=== PATIENT | female | born 1945 | race Caucasian/White ===

== ENCOUNTER → 2018-02-16 | Outpatient (CLI) | payer MEDICARE ==
[~2018-02-16] MED LIST: ASPI-1441 PO; ASPI-1471 PO; ASPI81TA94 PO; ATE50 PO; ATEN-1 PO; ATEN-65 PO; BUS5 PO; CALC-1033 PO; CALC-1046; CLI150 PO; CLIN300C99 PO; EZET1TAB81 PO; LEV25 PO; LEVO25TA61 PO; LOR5/325 PO; LORA-630 PO; LOSA50TA67 PO; MAGN27TA6 PO; MAGN400T10; METO25TA23 PO; MULT-1 PO; MULT-27 PO; NIT4 SL; OMEP-218 PO; ONDA-2 PO; SENN-287 PO; SIMV-44 PO; SIMV-54 PO; VERA180C7 PO; VERA240C10 PO
== END ==
LOC: LAB 09:14
PROVIDERS: ATTEND Family Medicine
DX: E03.9 Hypothyroidism, unspecified (principal)
CPT/HCPCS: 36415; 84443

== ENCOUNTER → 2018-04-03 | Outpatient (CLI) | payer MEDICARE ==
[~2018-04-03] MED LIST changes: +PRAV40TA78 PO
--- NOTE | 2018-04-03 16:29 | RADIOLOGY IMAGING REPORT ---
FACILITY: [facility] PATIENT NAME: Leslee Cornell : 1945 MR: [id number] V: [id number] EXAM DATE: ORDERING PHYSICIAN: FIORDALIZA BOUCHER TECHNOLOGIST: Location: [facility] Patient: Leslee Cornell : 1945 Visit/Account:[id number] Date of Sevice: 04/03/2018 Venous Doppler ultrasound left lower extremity Indication: Left calf tenderness and ankle swelling. Comparison: None Available Findings: Duplex Doppler and color flow imaging was performed. The common femoral, femoral, and popl iteal veins are all patent and compressible with normal Doppler wave forms. There are normal respons es to augmentation. The posterior tibial and peroneal veins are patent in the calf. The proximal greater saphenous vein is also normal. IMPRESSION: 1. No evidence of deep venous thrombosis of the left lower extremity. Report Dictated By: Clifton Cruz DO at 04/03/2018 4:24 PM Report E-Signed By: Clifton Cruz DO at 04/03/2018 4:25 PM WSN:[id number]
== END ==
LOC: RAD 15:16
PROVIDERS: ATTEND Nurse Practitioner Primary Care
DX: M79.605 Pain in left leg (principal); R60.0 Localized edema

== ENCOUNTER → 2018-04-25 | Outpatient (CLI) | payer MEDICARE | LOC: US 01:37 | PROVIDERS: ATTEND Internal Medicine Cardiovascular Disease | DX: I51.7 Cardiomegaly (principal); I35.2 Nonrheumatic aortic (valve) stenosis with insufficiency | CPT/HCPCS: 93306 ==

== ENCOUNTER → 2018-05-02 | Outpatient (CLI) | payer MEDICARE | LOC: LAB 07:24 | PROVIDERS: ATTEND Internal Medicine Cardiovascular Disease | DX: I35.9 Nonrheumatic aortic valve disorder, unspecified (principal); I25.10 Atherosclerotic heart disease of native coronary artery without angina pectoris; I48.0 Paroxysmal atrial fibrillation; I10 Essential (primary) hypertension; E78.00 Pure hypercholesterolemia, unspecified | CPT/HCPCS: 36415; 82310; 82374; 82435; 82465; 82565; 82947; 83718; 84132; 84295; 84478; 84520 ==

== ENCOUNTER → 2018-08-18 | Outpatient (CLI) | payer MEDICARE ==
--- NOTE | 2018-08-18 14:54 | RADIOLOGY IMAGING REPORT ---
FACILITY: [facility] PATIENT NAME: GAMAL LOPEZ : [id number] MR: [id number] V: [id number] EXAM DATE: [id number] ORDERING PHYSICIAN: DAYRON BLANK TECHNOLOGIST: Dolly Simpson PROCEDURE:BILATERAL DIGITAL SCREENING MAMMOGRAM WITH CAD ASSISTED INTERPRETATION & 3D TOMOSYNTHESIS COMPARISON:Prior mammograms 06/24/17, 06/14/17, 06/10/16, 05/26/15, 04/30/14. INDICATIONS:SCREENING FINDINGS: A small amount of fibroglandular tissue is seen throughout the breasts. The parenchymal pattern has remained stable allowing for difference in mammographic technique & patient positioning. There is no evidence of malignant appearing mass, malignant appearing calcifications or other secondary sign of malignancy in either breast. DIAGNOSTIC CATEGORY 1--NEGATIVE. RECOMMENDATIONS: ROUTINE MAMMOGRAM AND CLINICAL EVALUATION. IMPRESSION: BIRADS 1: Negative. No significant abnormality is seen. Dictated by: Maria E Butler M.D. on 08/18/2018 at 10:04 Transcribed by: GABRIEL on 08/18/2018 at 10:28 Approved by: Maria E Butler M.D. on 08/18/2018 at 14:53 [facility]
== END ==
LOC: MAMO 02:59
PROVIDERS: ATTEND Family Medicine
DX: Z12.31 Encounter for screening mammogram for malignant neoplasm of breast (principal)
CPT/HCPCS: 77063; 77067